=== PATIENT | male | born 1975 | race Two or more races ===

== ENCOUNTER 2020-01-31 14:52 | Emergency (ER) | payer SELFPAY ==
[~2020-01-31] VITALS: Ht 167.6 cm; Wt 80.0 kg
--- NOTE | 2020-01-31 14:53 | NUR ---
PT TO ROOM AT THIS TIME.
[2020-01-31 15:01] VITALS: BP 143/95
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
--- NOTE | 2020-01-31 15:13 | NUR ---
REPORT TO JUDSON ACOSTA
--- NOTE | 2020-01-31 16:19 | NUR ---
pt resting in bed.
--- NOTE | 2020-01-31 17:30 | NUR ---
steady ambulation and snacks provided
--- NOTE | 2020-01-31 17:49 | NUR ---
discharge instructions reviewed
== END 2020-01-31 18:36 | disposition home or self-care (01) ==
LOC: ED 17:20 → EDBD 17:20 → ED 18:36
DX: S09.90XA Unspecified injury of head, initial encounter (principal); F10.120 Alcohol abuse with intoxication, uncomplicated; Y90.0 Blood alcohol level of less than 20 mg/100 ml; W01.0XXA Fall on same level from slipping, tripping and stumbling without subsequent striking against object, initial encounter; Y93.89 Activity, other specified; Y92.488 Other paved roadways as the place of occurrence of the external cause; Y99.8 Other external cause status
CPT/HCPCS: 70450; 72125; 99285

== ENCOUNTER 2020-11-14 04:50 | Emergency (ER) | payer MEDICAID ==
[~2020-11-14] VITALS: Ht 154.9 cm; Wt 68.9 kg
[2020-11-14] MEDS ORDERED: THIAMINE 100MG TABLET ONE (05:58)
[2020-11-14] MEDS ORDERED: ONDANSETRON 2MG/ML, 2ML ONE (05:58)
[2020-11-14] MEDS ORDERED: SODIUM CHLORIDE 0.9% 1,000 ML IV ONE (06:00)
[2020-11-14] MEDS ORDERED: SODIUM CHLORIDE 0.9% 1,000ML IVBOLUS ONE (06:00)
[2020-11-14] MEDS ORDERED: SODIUM CHLORIDE FLUSH 10ML SYR IVF ONE (06:00)
[2020-11-14] MEDS ORDERED: ONDANSETRON 2MG/ML, 2ML IVPush ONE (06:00)
[2020-11-14] MEDS ORDERED: THIAMINE 100MG TABLET PO ONE (06:00)
[2020-11-14 06:07] LABS: BASOPHILS % (AUTO) 0 % (0-1); EOSINOPHILS % (AUTO) 1 % (1-7); LYMPHOCYTES % (AUTO) 28 % (22-44); MEAN CORPUSCULAR HEMOGLOBIN 28.6 pg (27.5-34.5); MEAN CORPUSCULAR HGB CONC 33.6 g/dL (33.2-36.2); MEAN PLATELET VOLUME 7.2 fL (7.4-10.4); MONOCYTES % (AUTO) 11 % (2-9); NEUTROPHILS % (AUTO) 61 % (42-75); PLATELET COUNT 288 x10^3/uL (130-400); RED BLOOD COUNT 4.46 x10^6/uL (4.38-5.82); RED CELL DISTRIBUTION WIDTH 13.6 % (9.4-14.8)
[2020-11-14 06:21] LABS: ALBUMIN 3.5 g/dL (3.4-5.0); ANION GAP 11 mmol/L (5-15); CALCIUM 8.3 mg/dL (8.5-10.1); CHLORIDE 98 mmol/L (98-107)
[2020-11-14 06:24] LABS: ALANINE AMINOTRANSFERASE 31 U/L (12-78); ALKALINE PHOSPHATASE 69 U/L (45-117); BILIRUBIN,TOTAL 0.3 mg/dL (0.2-1.0); CREATININE 0.93 mg/dL (0.7-1.3); TOTAL PROTEIN 7.3 g/dL (6.4-8.2)
[2020-11-14] MEDS ORDERED: POTASSIUM CHLORIDE 20 MEQ TAB.ER.PRT ONE (06:55)
--- NOTE | 2020-11-14 06:56 | NUR ---
REPORT GIVEN TO SASHA ACOSTA.
[2020-11-14] MEDS: POTASSIUM CHLORIDE 20 MEQ TAB.ER.PRT PO ONE ×2 (06:58→08:07)
--- NOTE | 2020-11-14 07:06 | NUR ---
PT OPENING EYES TO VERBAL STIMULI, BUT NOT ANSWERING QUESTIONS. UNABLE TO GIVE ORAL MEDS AT THIS TIME.
[2020-11-14] MEDS ORDERED: NS + 40MEQ KCL 1,000 ML IV ONE (08:09)
[2020-11-14] MEDS ORDERED: NS + 40MEQ KCL 1,000 ML IV SCH (08:30)
--- NOTE | 2020-11-14 09:00 | NUR ---
REPORT RECEIVED FROM KARLA RUCKER. PT RESTING INJ IVONE. PT STILL NOT AWAKE ENOUGH FOR DC. IV FLUIDS INFUSING. RESPIRATONS WNL.
--- NOTE | 2020-11-14 10:15 | NUR ---
ATTEMPT TO WAKE PT UP AND TO MOBILIZE. PT STILL LETHARGIC AND UNABLE TO FOLLOW COMMANDS.
--- NOTE | 2020-11-14 11:33 | NUR ---
PT ABLE TO AMBULATE AND CHANGE CLOTHES WITHOUT ASSISTANCE. PT STATED THAT HE IS READY TO DISCAHRGE. DISCHARGE INSTRUCTIONS REVIEWED WITH PT. ALL QUESTIONS ANSWERED AT THIS TIME.
[2020-11-14 11:34] VITALS: BP 133/72
== END 2020-11-14 11:38 | disposition home or self-care (01) ==
LOC: ED 05:41
DX: F10.129 Alcohol abuse with intoxication, unspecified (principal); J69.0 Pneumonitis due to inhalation of food and vomit; R94.31 Abnormal electrocardiogram [ECG] [EKG]; Y90.0 Blood alcohol level of less than 20 mg/100 ml; F17.200 Nicotine dependence, unspecified, uncomplicated
CPT/HCPCS: 36415; 71045; 80053; 80320; 83690; 85025; 93005; 96361; 96365; 96366; 96375; 99285; J2405; J3480; J7030; G0480